=== PATIENT | male | born 1965 | race Caucasian/White ===

== ENCOUNTER 2024-07-17 14:09 | Outpatient (AMB) | payer OTHER, SELFPAY ==
--- NOTE | 2024-07-17 11:27 | MHC.OFFVIS ---
Vital Signs 07/17/24 14:14 Height 5 ft 11 in Weight 194 lb 6 oz BMI 27.1 BP 132/74 Blood Pressure Location Lt brachial Position Sitting Pulse 94 Pulse Source Pulse Oximeter Pulse Oximetry (%) 93 Oxygen Delivery Method Room Air Intake Visit Reasons: asthma, SOB and persistent cough Allergies No Known Allergies Allergy (Verified 07/17/24 14:20) HPI HPI asthma, SOB and persistent cough: Details: Pepe is a pleasant 58 year old male, never smoker, with underlying asthma, ARSALAN not on CPAP, HTN, HLD and Depression. He was referred by PCP for pulmonary evaluation. He reports worsening respiratory control over the last few years with wheezing, dyspnea, chest tightness and dry cough. He has been using albuterol MDI quite frequently with suboptimal relief. Previously he was prescribed Flovent many years ago. PCP recently prescribed a zpak, however minimal relief. CXR unremarkable. He reports asthma dx as an adult. He reports seasonal allergies, would like to defer allergy testing at this time. Has three dogs at home. He denies any occupational exposures. He denies any pertinent family history. [facility] Social History (Updated 07/17/24 @ 14:22 by Ana Chapa [facility]) Patient Tobacco Use Status: Never used Tobacco Substance Use Type: Marijuana Review of Systems Const Denies chills, Denies excessive sweating, Denies fever(s), Denies headache(s) and Denies night sweats Eyes Denies dry eyes, Denies irritation and Denies itchy eyes ENT Reports Normal hearing present, Denies headache(s), Denies nasal congestion, Denies nasal discharge and Denies sore throat Card Denies chest pain, Denies chest pain at rest, Denies chest pain with activity, Denies claudication, Denies leg edema, Denies orthopnea and Denies paroxysmal nocturnal dyspnea Resp Denies chest congestion, Denies excessive phlegm production, Denies pain on inspiration, Denies pain with cough and Denies stridor Musc Denies myalgias Neuro Reports Normal hearing present and Denies headache(s) Endo Denies excessive sweating Benny/Lymph Denies lymphadenopathy Aller/Immun Denies itchy eyes and Denies seasonal rhinorrhea Physical Exam Vital Signs: Last Vital Signs Pulse 94 07/17/24 14:14 BP 132/74 07/17/24 14:14 Pulse Ox 93 07/17/24 14:14 Oxygen Delivery Method Room Air 07/17/24 14:14 BMI result Body Mass Index 27.1 Const General: cooperative, healthy appearing, comfortable, no acute distress, well developed and alert Orientation/consciousness: patient oriented x3 Limitations: no limitations HEENT Head: Yes normal to inspection, Yes normocephalic and Yes atraumatic Ears: hearing grossly normal bilaterally and external ears normal Eyes General: appearance normal, both eyes and all related structures Eyelids: Yes eyelids normal Sclerae: sclerae normal EOM: EOMs intact bilaterally Neck Neck: Yes normal visual inspection and Yes no lymphadenopathy Lymphatic: no lymphadenopathy noted Chest Chest palpation & inspection: normal inspection of the chest Resp Effort & Inspection: normal respiratory effort, able to speak in complete sentences, audible wheezes, Actively coughing Quality: dry, no stridor, not tachypneic, no tripod positioning and no use of accessory muscles Auscultation: wheezes (bilateral upper expiratory wheezes, resolved with DuoNeb) Cardio Jugular venous distension: no JVD Rate: regular rate Rhythm: regular rhythm Skin Other: warm, dry General skin exam: no rashes or lesions noted Neuro General: patient oriented x3 Cranial nerves: Yes Normal hearing present Cognition (Neuro): normal cognition Gait exam (Neuro): Normal gait present Extrem General: Yes normal to inspection, Yes capillary refill normal, Yes no clubbing, cyanosis or edema and Yes no pedal edema Psych Appearance: grossly normal and well kempt Speech and movement: Normal speech and movement present and Clear speech present Affect: normal affect Attitude: cooperative Thought process: Normal thought process present Thought content: Normal thought content present Insight: Good insight present (Psych) Judgement: Good judgement present (Psych) Office Procedures Nebulizer Treatment Nebulizer Treatment [id number]/MDI RX initial, or Nebulizer Subsequent Treatment Office Meds ipratropium 0.5 mg-albuterol 3 mg (2.5 mg base)/3 mL nebulization felix Performing Provider: Purnima Presley NP Performing Location: [facility] [place] [facility] Administered by: Carmel Rivera LPN on 07/17/24 15:03 Dose Route Admin Location Dispensed Lot Number Expiration Date [facility] [employer] 3 mL inhalation 3 mL [id number] 03/28/26 83960-378-38 [employer] Results Reviewed Results Reviewed: RESULT: Chest 2 Views Frontal and Lat Chest 2 Views Frontal and Lat REASON: COUGH COMPARISON: 04/21/2012 FINDINGS: LINES AND TUBES: None. LUNGS AND PLEURA: Clear lungs. Normal pulmonary vascularity. No pleural effusion. No pneumothorax. HEART, MEDIASTINUM AND RAMONA: Heart is normal in size. Normal mediastinal and hilar contour. BONES AND SOFT TISSUES: No acute abnormality. IMPRESSION: No acute abnormality. I have personally reviewed the images and I agree with this report. WSN: [id number] Ordering Physician: Bismark Weiss Reason For Exam cough Signature Line Dictated By: Lucia Dickson DO Dictated Date/Time: 07/09/24 9:23 am Reviewed By: John Lundy MD, V Signed By: John Lundy MD, V Signed Date/Time: 07/09/24 9:28 am Transcribed By: KYLE Assessment & Plan Assessment & Plan (1) Asthma: Code(s): J45.909 - Unspecified asthma, uncomplicated Category: Medical (2) Environmental allergies: Code(s): Z91.09 - Other allergy status, other than to drugs and biological substances Category: Medical Plan Pepe's symptoms are likely related to poorly controlled asthma, using albuterol MDI frequently. Singificantly improved after DuoNeb in office. Will empirically switch to Breo. Discussed importance of good oral hygiene to prevent thrush. Will also send for PFT. Discussed sending for allergy testing, however would like to defer at this time. He did note h/o ARSALAN, prior sleep study many years ago. Will further discussing at next visit if asthma better controlled. All questions were answered and patient is in agreement of plan. Will follow up in 6-8 weeks or sooner if needed. Orders: Orders AMB Nebulizer Treatment Today J45.909 - Unspecified asthma, uncomplicated PFT pulmonary function test Today J45.909 - Unspecified asthma, uncomplicated Medications: New fluticasone furoate-vilanterol 100-25 mcg/dose (Breo Ellipta) 1 inh inhalation DAILY 60 ea 6RF Coding Level of Care Code New Pt Level 4 (15682) Diagnoses Asthma J45.909 Environmental allergies Z91.09 CPT Codes Nebulizer Treatment - Nebulizer Treatment, initial or subsequent: [id number]/MDI RX initial, or Nebulizer Subsequent Treatment ([id number])
[2024-07-17 14:14] VITALS: BP 132/74; PULSE 94; O2SAT 93; BMI 27.1
== END 2024-07-17 15:29 | disposition home or self-care (01) ==
PROVIDERS: PCP Physician Assistant Medical; Referring Provider Physician Assistant Medical; Visit Provider Nurse Practitioner Family
DX: J45.909 Unspecified asthma, uncomplicated (principal); Z91.09 Other allergy status, other than to drugs and biological substances
CPT/HCPCS: 99204

== ENCOUNTER 2024-09-03 13:47 | Outpatient (REF) | payer OTHER, SELFPAY ==
--- OUTSIDE RECORDS SUMMARY | 2024-09-03 13:50 | XMS_ITS | Encounter Summary ---
Author Organization [facility] Address [address] [place] [address] Care Team Providers Care Stone Carver Name Role Phone Isela, Bismark BARRIOS Primary Care Provider [phone] Encounter Details Date Type Department Care Team (Late st Contact Info) Description 08/25/2024 10:12 AM EST Anesthesia Event [facility] [address] [facility] [place] [id number] Pepe SheriffDO [address] [place] [address] Anesthesia Record Procedure Summary Procedure Name Responsible Anesthesiologist Anesthesia Start Time Anesthesia Stop Time COLONOSCOPY Pepe SheriffDO 08/25/24 1012 08/25/24 1035 Events Date Time Event Comment 08/25/2024 0948 1012 An Start 1012 In Room 1012 An Start Data The patient wa s reevaluated immediately before moderate or deep sedation use and before anesthesia induction. 1015 Anesthesia Ready 1029 Out of Room 1029 an stop data 1034 Handoff to RN I completed my handoff to the receiving nurse during which we: 1. Identified the patient 2. Identified the responsible provider 3. Reviewed the pertinent medical history 4. Discussed the surgical course 5. Reviewed intra-op anesthesia management and issues during anesthesia 6. Set expectations for post-procedure period 7. Allowed opportunity for questions and acknowledgement of understanding. 1035 An Stop Meds Name Total propofol (DIPRIVAN) injection 10 mg/mL 3 50 mg lidocaine PF (XYLOCAINE-MPF) local injec tion 2% 50 mg lactated Ringer's infusion 400 mL * Agents No agents on file. * Blood No blood administrations on file. Lines, Drains, and Airways Type Details Placement Removal Peripheral IV Placement Date: 08/25/24; Placement Time: 936; Catheter Size: 20 G; Orientation: Posterior, Right; Location: Hand; Insertion Attempts: 1; Patient Tolerance: Tolerated well; Removal Date: 08/25/24; Removal Time: 1043 08/25/24 0937 by Shayy Jj RN 08/25/24 1043 by Cathy Parsons RN documented in this encounter Social History Tobacco Use Types Packs/Day Years Used Date Smoking Tobacco: Never Smokeless Tobacco: Never Alcohol Use Standard Drinks/Week Comments Yes 9 (1 standard drink = 0.6 oz pur e alcohol) Interpersonal Safety Answer Date Record ed Physical Abuse 08/25/2024 Verbal Abuse 08/25/2024 Sex and Gender Information Value Date Recorded Sex Assigned at Male 08/13/2024 8:48 AM EST Gender Identity Male 08/13/2024 8:48 AM EST Sexual Orientation Straight 08/13/2024 8: 48 AM EST Job Start Date Occupation Industry Not on file Not on file Not on file documented as of this encounter Progress Notes * Phuong Mcmillan CRNA - 08/25/2024 10:34 AM EST Patient: Pepe Yao Procedure Summary Date: 08/25/24 Room / Location: [facility] Anesthesia Start: 101 Anesthesia Stop: Procedure: COLONOSCOPY Diagnosis: Family history of colonic polyps (Screening in patient with FH polyp 1st deg relative age < 60 yrs) Scheduled Providers: Humble Kessler MD; Phuong Mcmillan CRNA; Pepe Sheriff DO Responsible Provider: Pepe Sheriff DO Anesthesia Type: MAC ASA Status: 2 Anesthesia Plan: MAC Last Vitals: Vitals Value Taken Time BP 114/73 08/25/24 1034 Pulse 68 08/25/24 1034 Resp 16 08/25/24 1034 SpO2 97 08/25/24 1034 No data recorded Anesthesia Post Evaluation Patient location during evaluation: PACU Patient participation: complete - patient participated Level of consciousness: awake Pain management: adequate Airway patency: patent Anesthetic complications: no Cardiovascular status: acceptable Respiratory status: acceptable Hydration status: acceptable Nausea: No Vomiting: No No notable events documented. * Pepe Sheriff DO - 08/25/2024 9:33 AM EST Relevant Problems No relevant active problems Clinical information reviewed: Allergies Anesthesia Plan ASA 2 Anesthesia Plan: MAC Anesthesia Risks Discussed allergic reaction, dental injury, nausea, serious complications, pain, sore throat and corneal abrasion Plan Factors Patient is not a current smoker Induction method: N/A Anesthetic plan and risks discussed with patient. Anesthesia Plan discussed with attending. Anesthesia Evaluation Patient summary reviewed and Nursing notes reviewed No history of anesthetic complications Airway Mallampati: IV Comment: Small mouth opening Dental - normal exam Pulmonary - normal exam breath sounds clear to auscultation (+) asthma (-) pneumonia, shortness of breath Cardiovascular - normal exam Exercise tolerance: good (+) hypertension (-) past ID, CAD, SANTOS Rhythm: regular Rate: normal ROS comment: HLD Neuro/Psych (-) seizures, TIA, CVA GI/Hepatic/Renal (-) GERD, liver disease, renal disease Endo/Other (-) diabetes mellitus, hypothyroidism Comments: Anxiety/depression - very anxious about being in hospital sweating Abdominal (-) obese PONV RISK SCORE: 0 There were no vitals filed for this visit. SpO2 Readings from Last 1 Encounters: No data found for SpO2 No results found for: WBC , RBC , HGB , HCT , PLT , MCV No Known Allergies STOP BANG: No data recorded NPO Status: Time of Last Liquid: 2200 Time of Last Solid: 1600 documented in this encounter Plan of Treatment Not on file documented as of this encounter Visit Diagnoses Not on filedocumented in this encounter Administered Medications Inactive Administered Medications - up to 3 most recent administrations Medication Order MAR Action Action Date Dose Rate Site lactated Ringer's infusion intravenous, Continuous PRN, Starting on Sat08/25/24 at 1012, Anesthesia Intraprocedure New Bag 08/25/2024 10:12 AM EST 75 mL/hr lidocaine (PF) (XYLOCAINE-MPF) 2 % injection injection, As needed, Starting on Sat08/25/24 at 1014, Anesthesia Intraprocedure Given 08/25/2024 10:14 AM EST 50 mg propofoL (DIPRIVAN) injection intravenous, As needed, Starting on Sat08/25/24 at 1014, Anesthesia Intraprocedure Given 08/25/2024 10:27 AM EST 50 mg Given 08/25/2024 10:23 AM EST 50 mg Given 08/25/2024 10:19 AM EST 50 mg documented in this encounter Care Teams Stone Carver Relationship Specialty Start Date End Date Bismark Weiss PA [address] [place] [phone] PCP - General Physician Manager Residential 07/14/24 documented as of this encounter
--- OUTSIDE RECORDS SUMMARY | 2024-09-03 13:50 | XMS_ITS | Encounter Summary ---
Author Organization [facility] Address [address] [place] [phone] Care Team Providers Care Candy Packer Name Role Phone Isela Bismark BARRIOS Primary Care Provider [phone] Reason for Referral * Hospital - Outpatient (Routine) - Closed Specialty Diagnoses / Procedures Referred By Melly angeles Referred To Contact Gastroenterology Diagnoses Family history of colonic polyps Procedures COLONOSCOPY Anesthesia - MAC; [facility] ENDOSCOPY Humble Kessler MD [address] [address] [facility] Endoscopy [address] [place] [address] Referral ID Status Reason Start Date Expiration Date Visits Re quested Visits Authorized [id number] Closed 07/27/2024 07/27/2025 1 1 Reason for Visit * Hospital - Outpatient (Routine) - Closed Specialty Diagnoses / Procedures Referred By Melly angeles Referred To Contact Gastroenterology Diagnoses Family history of colonic polyps Procedures COLONOSCOPY Anesthesia - MAC; [facility] ENDOSCOPY Humble Kessler MD [address] [address] [facility] Endoscopy [address] [place] [address] Referral ID Status Reason Start Date Expiration Date Visits Re quested Visits Authorized [id number] Closed 07/27/2024 07/27/2025 1 1 Encounter Details Date Type Department Care Team (Latest Contact Info) Description 08/25/2024 9:04 AM EST - 08/25/2024 11:59 PM EST Hospital Encounter [facility] Endoscopy [address] [place] [phone] Humble Kessler MD 229 [facility] [address] [place] [address] Matt Angeles MD [address] [place] [address] Family history of colonic polyps Discharge Disposition: Home or Self Care Social History Tobacco Use Types Packs/Day Years Used Date Smoking Tobacco: Never Smokeless Tobacco: Never Tobacco Cessation:Counseling Given: Not Answered Alcohol Use Standard Drinks/Week Comments Yes 9 [...] on file documented as of this encounter Last Filed Vital Signs Vital Sign Reading Time Taken Comments Blood Pressure 145/89 08/25/2024 10:50 AM EST Pulse 63 08/25/2024 10:50 AM EST Temperature 36.7 ??C (98 ??F) 08/25/2024 10:30 AM EST Respiratory Rate 11 08/25/2024 10:50 AM EST Oxygen Saturation 98% 08/25/2024 10:50 AM EST Inhaled Oxygen Concentration - - Weight 86.2 kg (190 lb) 08/25/2024 9:36 AM EST Height 180.3 cm (5' 11 ) 08/25/2024 9:36 AM EST Body Mass Index 26.5 08/25/2024 9:36 AM EST documented in this encounter Discharge Instructions * Attachments The following attachments cannot be sent through Care Everywhere. * Colonoscopy: Post-op (Ghanaian) * Diverticulosis (Ghanaian) documented in this encounter Medications at Time of Discharge Medication Sig Dispensed Refills Start Date End Date amLODIPine (NORVASC) 10 mg tablet Take 1 tablet (10 mg total) by mouth 1 (one) time each day. 07/08/2024 atorvastatin (LIPITOR) 10 mg tablet Take 1 tablet (10 mg total) by mouth 1 (one) time each day. 07/08/2024 Auvelity 45-105 mg tablet, IR and ER, biphasic Take 1 tablet by mouth 2 (two) times a day. 08/13/2024 Breo Ellipta 100-25 mcg/dose inhaler Inhale 1 puff by mouth 1 (one) time each day. 07/17/2024 coenzyme Q-10 30 mg capsule Take 2 capsules (60 mg total) by mouth 1 (one) time each day. fluticasone propionate (FLONASE) 50 mcg/actuation nasal spray Administer 2 sprays into each nostril 1 (one) time each day. 07/08/2024 hydrOXYzine HCL (ATARAX) 25 mg tablet Take 1 tablet (25 mg total) by mouth 3 (three) times a day if needed. 07/27/2024 magnesium, amino acid chelate, 133 mg tablet Take 1 tablet (133 mg total) by mouth 2 (two) times a day. documented as of this encounter Discharge Disposition Disposition Code Departure Means Destination Home or Self Care documented in this encounter Progress Notes * Cathy Parsons RN - 08/25/2024 10:45 AM EST Problem: Cognitive:Periop Procedure - Minor Goal: Knowledge of disease or condition will improve Outcome: Adequate for Discharge Problem: Sensory:Periop Procedure - Minor Goal: Demonstrates/reports adequate pain control Outcome: Adequate for Discharge * Sun Fortune RN - 08/25/2024 10:45 AM EST Problem: Cognitive:Periop Procedure - Minor Goal: Knowledge of disease or condition will improve Outcome: Adequate for Discharge Problem: Sensory:Periop Procedure - Minor Goal: Demonstrates/reports adequate pain control Outcome: Adequate for Discharge * Valencia Herring RN - 08/25/2024 10:13 AM EST Scope number - [id number] * Shayy Jj RN - 08/25/2024 9:29 AM EST Problem: Cognitive:Periop Procedure - Minor Goal: Knowledge of disease or condition will improve Outcome: Progressing Problem: Sensory:Periop Procedure - Minor Goal: Demonstrates/reports adequate pain control Outcome: Progressing PT VERBALIZED UNDERSTAND OF DC INSTRUCTIONS, FALL RISK REVIEWED, CALL [facility] AT BEDSIDE. documented in this encounter H&P Notes * Humble Kessler MD - 08/25/2024 10:00 AM EST Pre-Op Diagnosis: FH polyp Proposed Procedure: colon Performing Surgeon/MD/Endoscopist: Humble Kessler MD Medical/History: Past Medical History: Diagnosis Date Anxiety Asthma Depression Hyperlipidemia Hypertension Past Surgical History: Procedure Laterality Date HERNIA REPAIR MENISCECTOMY Left MOUTH SURGERY Medications/Allergies: Prior to Admission medications Medication Sig Start Date End Date Taking? Authorizing Provider amLODIPine (NORVASC) 10 mg tablet Take 1 tablet (10 mg total) by mouth 1 (one) time each day. 07/08/24 Yes Historical Provider, atorvastatin (LIPITOR) 10 mg tablet Take 1 tablet (10 mg total) by mouth 1 (one) time each day. 07/08/24 Yes Historical Provider, Auvelity 45-105 mg tablet, IR and ER, biphasic Take 1 tablet by mouth 2 (two) times a day. 08/13/24 Yes Historical Provider, Breo Ellipta 100-25 mcg/dose inhaler Inhale 1 puff by mouth 1 (one) time each day. 07/17/24 Yes Historical Provider, coenzyme Q-10 30 mg capsule Take 2 capsules (60 mg total) by mouth 1 (one) time each day. Yes Historical Provider, fluticasone propionate (FLONASE) 50 mcg/actuation nasal spray Administer 2 sprays into each nostril1 (one) time each day. 07/08/24 Yes Historical Provider, hydrOXYzine HCL (ATARAX) 25 mg tablet Take 1 tablet (25 mg total) by mouth 3 (three) times a day ifneeded. 07/27/24 Yes Historical Provider, magnesium, amino acid chelate, 133 mg tablet Take 1 tablet (133 mg total) by mouth 2 (two) times a day. Yes Historical Provider, Patient Age:58 y.o. Vitals: Vitals: 08/25/24 0936 BP: (!) 154/89 Pulse: 92 Resp: 14 Temp: 36.7 ??C (98 ??F) SpO2: 97% Physical Exam: Mental Status: Clear HEENT: WNL Heart: WNL Lungs: WNL Abdomen: WNL Extremities: WNL Neuro: WNL Labs: Imaging: Diagnosis/Plan: Colonoscopy documented in this encounter Procedure Notes * Sun Fortune RN - 08/25/2024 10:30 AM EST FINDINGS AND DISCHARGE INSTRUCTIONS REVIEWED WITH PT. PT VERBALIZES UNDERSTANDING. PT JEANNE PO PRIOR TO D/C. PT D/C'D WITH BELONGINGS. documented in this encounter Plan of Treatment Not on file documented as of this encounter Procedures Procedure Name Priority Date/Time Associated Diagnosis Comments COLONOSCOPY Routine 08/25/2024 10:29 AM EST Family history of colonic polyps documented in this encounter Results * COLONOSCOPY Anesthesia - MAC; [facility] ENDOSCOPY (08/25/2024 10:29 AM EST) Anatomical Region Laterality Modality Endoscopy 08/25/2024 10:0 9 AM EST Impressions 08/25/2024 10:31 AM EST - Diverticulosis in the sigmoid colon. ? - The examination was otherwise normal on direct and ? retroflexion views. ? - No specimens collected. Recommendation: ?- Repeat colonoscopy in 5 years for screening purposes. Narrative 08/25/2024 10:31 AM EST [facility] GI Patient Name: Pepe Yao Procedure Date: 08/25/2024 10:09 AM Date of : 1965 Age: 58 Room: ROOM 15 Gender: Male Note Status: Finalized Attending MD: Humble Kessler MD, Procedure Date No Time: 08/25/2024 Procedure: ? Colonoscopy Indications: ? Colon cancer screening in patient at increased risk: ? Family history of 1st-degree relative with colon ? polyps before age 60 years Providers: ? Hubmle Kessler MD Referring MD: ?Humble Kessler MD Medicines: ? Propofol per Anesthesia Complications: ? No immediate complications. Estimated Blood Loss: ? Estimated blood loss: none. Procedure: ? Pre-Anesthesia Assessment: ? - ASA Grade Assessment: II - A patient with mild ? systemic disease. ? After I obtained informed consent, the scope was ? passed under direct vision. Throughout the procedure, ? the patient's blood pressure, pulse, and oxygen ? saturations were monitored continuously.The ? Colonoscope was introduced through the anus and ? advanced to the cecum, identified by appendiceal ? orifice and ileocecal valve. The colonoscopy was ? performed without difficulty. The patient tolerated ? the procedure well. The quality of the bowel ? preparation was good. Findings: ?The perianal and digital rectal examinations were ? normal. ? Multiple diverticula were found in the sigmoid colon. ? The exam was otherwise without abnormality on direct ? and retroflexion views. Procedure Code(s): ? --- Professional --- ? G0105, Colorectal cancer screening; colonoscopy on ? individual at high risk Diagnosis Code(s): ? --- Professional --- ? K57.30, Diverticulosis of large intestine without ? perforation or abscess without bleeding ? Z83.71, Family history of colonic polyps CPT copyright 2020 [employer]. All rights reserved. The codes documented in this report are preliminary and upon golf course patroller review may be revised to meet current compliance requirements. Humble Kessler MD 08/25/2024 10:31:43 AM This report has been signed electronically.Humble Kessler MD Number of Addenda: 0 Note Initiated On: 08/25/2024 10:09 AM Scope In: Scope Out: ? Endoscopy Department at [facility] - [address] [place] [address], ? [place] [address] Procedure Note Humble Kessler MD - 08/25/2024 [facility] GI Patient Name: Pepe Yao Procedure Date: 08/25/2024 10:09 AM Date of : 1965 Age: 58 Room: ROOM 15 Gender: Male Note Status: Finalized Attending MD: Humble Kessler MD, Procedure Date No Time: 08/25/2024 Procedure: Colonoscopy Indications: [facility] Family history of 1st-degree relative with colon polyps before age 60 years Providers: Humble Kessler MD Referring MD: Humble Kessler MD Medicines: Propofol per Anesthesia Complications: No immediate complications. Estimated Blood Loss: Estimated blood loss: none. Procedure: Pre-Anesthesia Assessment: - ASA Grade Assessment: II - A patient with mild systemic disease. After I obtained informed consent, the scope was passed under direct vision. Throughout theprocedure, the patient's blood pressure, pulse, and oxygen saturations were monitored continuously.The Colonoscope was introduced through the anus and advanced to the cecum, identified by appendiceal orifice and ileocecal valve. The colonoscopy was performed without difficulty. The patient tolerated the procedure well. The quality of the bowel preparation was good. Findings: The perianal and digital rectal examinations were normal. Multiple diverticula were found in the sigmoidcolon. The exam was otherwise without abnormality ondirect and retroflexion views. Procedure Code(s): --- Professional --- G0105, Colorectal cancer screening; colonoscopy on individual at high risk Diagnosis Code(s): --- Professional --- K57.30, Diverticulosis of large intestine without perforation or abscess without bleeding Z83.71, Family history of colonic polyps CPT copyright 2020 [employer]. All rights reserved. The codes documented in this report are preliminary and upon golf course patroller reviewmay be revised to meet current compliance requirements. Humble Kessler MD 08/25/2024 10:31:43 AM This report has been signed electronically.Humble Kessler MD Number of Addenda: 0 Note Initiated On: 08/25/2024 10:09 AM Scope In: Scope Out: Endoscopy Department at [facility] - [address] [place] [phone] IMPRESSION: - Diverticulosis in the sigmoid colon. - The examination was otherwise normal on directand retroflexion views. - No specimens collected. Recommendation: - Repeat colonoscopy in 5 years for screeningpurposes. Humble Kessler MD GI~PROCEDURE ORDERA BLES documented in this encounter Visit Diagnoses Diagnosis Family history of colonic polyps documented in this encounter Historical Medications * This list may reflect changes made after this encounter. Medication Sig Dispensed Refills Start Date End Date magnesium, amino acid chelate, 133 mg tablet Take 1 tablet (133 mg total) by mouth 2 (two) times a day. coenzyme Q-10 30 mg capsule Take 2 capsules (60 mg total) by mouth 1 (one) time each day. fluticasone propionate (FLONASE) 50 mcg/actuation nasal spray Administer 2 sprays into each nostril 1 (one) time each day. 07/08/2024 Breo Ellipta 100-25 mcg/dose inhaler Inhale 1 puff by mouth 1 (one) time each day. 07/17/2024 hydrOXYzine HCL (ATARAX) 25 mg tablet Take 1 tablet (25 mg total) by mouth 3 (three) times a day if needed. 07/27/2024 Auvelity 45-105 mg tablet, IR and ER, biphasic Take 1 tablet by mouth 2 (two) times a day. 08/13/2024 atorvastatin (LIPITOR) 10 mg tablet Take 1 tablet (10 mg total) by mouth 1 (one) time each day. 07/08/2024 amLODIPine (NORVASC) 10 mg tablet Take 1 tablet (10 mg total) by mouth 1 (one) time each day. 07/08/2024 added in this encounter Orders Discharge Count Last Ordered Date First Orde red Date DISCHARGE PATIENT 1 08/25/2024 documented in this encounter Care Teams Candy Packer Relationship Specialty Start Date End Date Bismark Weiss PA [address] [place] [phone] PCP - General Physician Decker Operator 07/14/24 documented as of this encounter
--- OUTSIDE RECORDS SUMMARY | 2024-09-03 13:51 | XMS_ITS | Clinical Summary ---
Author Organization [facility] [address] [facility] Address [address] [place] [address] Phone Care Team Providers Care Certified Dialysis Technician Name Role Phone Bismark Weiss Primary Care Provider [phone] Allergies No known active allergies Medications Medication Sig Dispensed Refills Start Date End Date Status amLODIPine (NORVASC) 10 mg tablet Take 1 tablet (10 mg total) by mouth 1 (one) time each day. 07/08/2024 Active atorvastatin (LIPITOR) 10 mg tablet Take 1 tablet (10 mg total) by mouth 1 (one) time each day. 07/08/2024 Active Auvelity 45-105 mg tablet, IR and ER, biphasic Take 1 tablet by mouth 2 (two) times a day. 08/13/2024 Active hydrOXYzine HCL (ATARAX) 25 mg tablet Take 1 tablet (25 mg total) by mouth 3 (three) times a day if needed. 07/27/2024 Active Breo Ellipta 100-25 mcg/dose inhaler Inhale 1 puff by mouth 1 (one) time each day. 07/17/2024 Active fluticasone propionate (FLONASE) 50 mcg/actuation nasal spray Administer 2 sprays into each nostril 1 (one) time each day. 07/08/2024 Active coenzyme Q-10 30 mg capsule Take 2 capsules (60 mg total) by mouth 1 (one) time each day. Active magnesium, amino acid chelate, 133 mg tablet Take 1 tablet (133 mg total) by mouth 2 (two) times a day. Active Encounters Date Type Department Care Team Description 08/25/2024 10:12 AM EST Anesthesia Event [facility] Endoscopy [address] [place] [address] Pepe Sheriff DO 08/25/2024 9:04 AM EST - 08/25/2024 11:59 PM EST Hospital Encounter [facility] Endoscopy [address] [place] [address] Humble Kessler MD Spencer, Mark A, MD Family history of colonic polyps Discharge Disposition: Home or Self Care 07/30/2024 Telephone Gastroenterology - [address] [address] SatnamMehrdadfadi [place] 07/14/2024 Telephone Gastroenterology - 299 [facility] [address] [phone] Humble Kessler MD from Last 3 Months Surgical History Surgery Date Site/Laterality Comments MOUTH SURGERY MENISCECTOMY Left HERNIA REPAIR Medical History Medical History Date Comments Hypertension Hyperlipidemia Asthma Anxiety Depression Social History Tobacco Use Types Packs/Day Years [...] file Not on file Not on file Obstetrics History Last Filed Vital Signs Vital Sign Reading [...] Mass Index 26.5 08/25/2024 9:36 AM EST Plan of Treatment Health Maintenance Due Date Last Done Comments DTaP,Tdap,and Td Vaccines (1 - Tdap) 1984 Hepatitis B Vaccines (1 of 3 - 19+ 3-dose series) 1984 Zoster Vaccines (1 of 2) 10/03/2015 COVID-19 Vaccine (2023-2 5 season) 2024 08/01/2021, 11/23/2020, 11/02/2020 Cholesterol Screening (Lipid Panel) 07/14/2024 Depression Screening 07/14/2024 HIV Screening 07/14/2024 Hepatitis C Screening 07/14/2024 Social Influencers of Health Screening 07/14/2024 Colorectal Cancer Screening: Colonoscopy 08/25/2034 08/25/2024 Influenza Vaccine Completed 07/16/2024 HIB Vaccines Aged Out No longer eligi ble based on patient's age to complete this topic HPV Vaccines Aged Out No longer eligi ble based on patient's age to complete this topic Hepatitis A Vaccines Aged Out No long er eligible based on patient's age to complete this topic IPV Vaccines Aged Out No longer eligi ble based on patient's age to complete this topic MMR Vaccines Aged Out No longer eligi ble based on patient's age to complete this topic Meningococcal ACWY Vaccine Aged Out N o longer eligible based on patient's age to complete this topic Pneumococcal Vaccine: Pediatrics (0 to 5 Years) and At-Risk Patients (6 to 64 Years) Aged Out No longer eligible b ased on patient's age to complete this topic RSV Immunization Patients Under 20 months Aged Out No longer eligible b ased on patient's age to complete this topic Varicella Vaccines Aged Out No longer eligible based on patient's age to complete this topic Procedures Procedure Name Priority Date/Time Associated Diagnosis Comments COLONOSCOPY Routine 08/25/2024 10:29 AM EST Family history of colonic polyps from Last 3 Months Results * COLONOSCOPY Anesthesia - MAC; [facility] ENDOSCOPY (08/25/2024 10:29 AM EST) Anatomical Region Laterality Modality Endoscopy 08/25/2024 10:0 9 AM EST Impressions 08/25/2024 10:31 AM EST - Diverticulosis in the sigmoid colon. ? - The examination was otherwise normal on direct and ? retroflexion views. ? - No specimens collected. Recommendation: ?- Repeat colonoscopy in 5 years for screening purposes. Narrative 08/25/2024 10:31 AM EST [facility] GI Patient Name: Pepe Yao Procedure [...] polyps before age 60 years Providers: ? Humble Kessler MD Referring MD: ?Humble Kessler MD [...] history of colonic polyps CPT copyright 2020 [employer]. All rights reserved. The codes documented in this report are preliminary and upon pulp mill team leader review may be revised to meet current compliance requirements. Humble Kessler MD 08/25/2024 10:31:43 AM This report has been signed electronically.Humble Kessler MD Number of Addenda: 0 Note Initiated On: 08/25/2024 10:09 AM Scope In: Scope Out: ? Endoscopy Department at [facility] - [address] [place] [address], ? [place] [address] Procedure Note Humble Kessler MD - 08/25/2024 [facility] GI Patient Name: Pepe Yao Procedure Date: 08/25/2024 10:09 AM Date of : 1965 Age: 58 Room: ROOM 15 Gender: Male Note Status: Finalized Attending MD: Humble Kessler MD, Procedure Date No Time: 08/25/2024 Procedure: Colonoscopy Indications: [facility] history of 1st-degree relative with colon [...] history of colonic polyps CPT copyright 2020 [employer]. All rights reserved. The codes documented in this report are preliminary and upon pulp mill team leader reviewmay be revised to meet current compliance requirements. Humble Kessler MD 08/25/2024 10:31:43 AM This report has been signed electronically.Humble Kessler MD Number of Addenda: 0 Note Initiated On: 08/25/2024 10:09 AM Scope In: Scope Out: Endoscopy Department at [facility] - [address] [place] [phone] IMPRESSION: - Diverticulosis in the sigmoid colon. - The examination was otherwise normal on directand retroflexion views. - No specimens collected. Recommendation: - Repeat colonoscopy in 5 years for screeningpurposes. Humble Kessler MD GI~PROCEDURE ORDERA BLES from Last 3 Months Care Teams Certified Dialysis Technician Relationship Specialty Start Date End Date Bismark Weiss PA [address] [place] [phone] PCP - General Physician Fender Mechanic 07/14/24
--- NOTE | 2024-09-03 14:10 | PFT_ITS ---
Flows: FEV1: 102 % of predicted at 3.82 L FVC: 108 % of predicted at 5.26 L FEV1/FVC: 73 % Bronchodilator response: Present Volumes: Total lung capacity: 97 % of predicted at 7.20 L Residual volume: 91 % of predicted at 2.04 L Slow vital capacity: 97 % of predicted at 5.15 L Expiratory reserve volume: 187 % of predicted at 2.65 L Diffusion capacity: Normal Impression: No obstructive or restrictive ventilatory defect. Positive bronchodilator response. MTDD
== END 2024-09-03 13:48 | disposition home or self-care (01) ==
LOC: HO.RESP 13:47
PROVIDERS: PCP Physician Assistant Medical; Visit Provider Nurse Practitioner Family
DX: J45.909 Unspecified asthma, uncomplicated (principal)
CPT/HCPCS: 94010; 94727; 94729

== ENCOUNTER → 2024-09-03 14:10 | Outpatient (BNV) | payer OTHER, SELFPAY | PROVIDERS: PCP Physician Assistant Medical; Visit Provider Internal Medicine Pulmonary Disease | DX: J45.909 Unspecified asthma, uncomplicated (principal) | CPT/HCPCS: 94060; 94727; 94729 ==

== ENCOUNTER 2024-09-04 15:51 | Outpatient (AMB) | payer OTHER, SELFPAY ==
--- NOTE | 2024-09-04 15:53 | MHC.OFFVIS ---
Vital Signs 09/04/24 15:55 Height 5 ft 11 in Weight 186 lb BMI 25.9 BP 130/70 Blood Pressure Location Rt brachial Position Sitting Pulse 91 Pulse Source Pulse Oximeter Pulse Oximetry (%) 99 Oxygen Delivery Method Room Air Intake Visit Reasons: asthma, SOB and persistent cough Obstetrics Specialist Required: No Cycle Consultant: Cycle Consultant offered & declined Accompanied by: Self / Same As Patient Allergies No Known Allergies Allergy (Verified 09/04/24 15:58) Medication List - Last Reconciled 09/04/24 by Carmel Rivera LPN albuterol sulfate 90 mcg/actuation inhalation amlodipine 10 mg PO DAILY atorvastatin 10 mg PO DAILY fluticasone propion-salmeterol 115-21 mcg/actuation (Advair HFA) 2 puffs inhalation Q12H fluticasone propionate 50 mcg/actuation sprays intranasal hydroxyzine HCl 25 mg PO TID HPI HPI asthma, SOB and persistent cough: Details: Pepe is a pleasant 58 year old male, never smoker, with underlying asthma, ARSALAN not on CPAP, HTN, HLD and Depression. At the last visit, he was started on Breo for reports worsening respiratory control over the last few years with wheezing, dyspnea, chest tightness and dry cough. He reports good control of respiratory symptoms since then, rarely requiring albuterol. Today he presents to review PFT. He denies any visits to urgent care or hospitalizations related to respiratory distress since the last visit. [facility] Social History (Updated 07/17/24 @ 14:22 by Ana Chapa [facility]) Patient Tobacco Use Status: Never used Tobacco Substance Use Type: Marijuana Review of Systems Const Denies chills, Denies excessive sweating, Denies fever(s), Denies headache(s) and Denies night sweats Eyes Denies dry eyes, Denies irritation and Denies itchy eyes ENT Reports Normal hearing present, Denies headache(s), Denies nasal congestion, Denies nasal discharge, Denies post nasal drip and Denies sore throat Card Denies chest pain, Denies chest pain at rest, Denies chest pain with activity, Denies claudication, Denies leg edema, Denies dyspnea, Denies dyspnea on exertion, Denies orthopnea and Denies paroxysmal nocturnal dyspnea Resp Denies chest congestion, Denies cough, Denies excessive phlegm production, Denies pain on inspiration, Denies pain with cough, Denies dyspnea, Denies dyspnea on exertion, Denies stridor and Denies wheezing Musc Denies myalgias Neuro Reports Normal hearing present and Denies headache(s) Endo Denies excessive sweating Benny/Lymph Denies lymphadenopathy Aller/Immun Denies itchy eyes, Denies seasonal rhinorrhea and Denies wheezing Physical Exam Vital Signs: Last Vital Signs Pulse 91 09/04/24 15:55 BP 130/70 09/04/24 15:55 Pulse Ox 99 09/04/24 15:55 Oxygen Delivery Method Room Air 09/04/24 15:55 BMI result Body Mass Index 25.9 Const General: cooperative, healthy appearing, comfortable, no acute distress, well developed and alert Orientation/consciousness: patient oriented x3 Limitations: no limitations HEENT Head: Yes normal to inspection, Yes normocephalic and Yes atraumatic Ears: hearing grossly normal bilaterally and external ears normal Eyes General: appearance normal, both eyes and all related structures Eyelids: Yes eyelids normal Sclerae: sclerae normal EOM: EOMs intact bilaterally Neck Neck: Yes normal visual inspection and Yes no lymphadenopathy Lymphatic: no lymphadenopathy noted Chest Chest palpation & inspection: normal inspection of the chest Resp Effort & Inspection: normal respiratory effort, able to speak in complete sentences, no audible wheezes, no cough, no stridor, not tachypneic, no tripod positioning and no use of accessory muscles Auscultation: clear to auscultation bilaterally Cardio Jugular venous distension: no JVD Rate: regular rate Rhythm: regular rhythm Skin Other: warm, dry General skin exam: no rashes or lesions noted Neuro General: patient oriented x3 Cranial nerves: Yes Normal hearing present Cognition (Neuro): normal cognition Gait exam (Neuro): Normal gait present Extrem General: Yes normal to inspection, Yes capillary refill normal, Yes no clubbing, cyanosis or edema and Yes no pedal edema Psych Appearance: grossly normal and well kempt Speech and movement: Normal speech and movement present and Clear speech present Affect: normal affect Attitude: cooperative Thought process: Normal thought process present Thought content: Normal thought content present Insight: Good insight present (Psych) Judgement: Good judgement present (Psych) Assessment & Plan Assessment & Plan (1) Asthma: Code(s): J45.909 - Unspecified asthma, uncomplicated Category: Medical (2) Environmental allergies: Code(s): Z91.09 - Other allergy status, other than to drugs and biological substances Category: Medical Plan Reviewed PFT which revealed no obstructive or restrictive defect with significant response to bronchodilators, suggestive of asthma. Lung volumes and DLCO normal. At this time, Pepe reports good control of respiratory symptoms on ICS/LABA, advised to continue. Therese unfortunately is not financially feasible, will send Advair. All questions were answered and patient is in agreement of plan. Will follow up in 3-6 months or sooner if needed Medications: Refilled fluticasone propion-salmeterol 115-21 mcg/actuation (Advair HFA) 2 puffs inhalation Q12H 12 grams 3RF Coding Level of Care Code Est Pt Level 4 (86249) Diagnoses Asthma J45.909 Environmental allergies Z91.09
[2024-09-04 15:55] VITALS: BP 130/70; PULSE 91; O2SAT 99; BMI 25.9
== END 2024-09-04 16:29 | disposition home or self-care (01) ==
PROVIDERS: PCP Physician Assistant Medical; Visit Provider Nurse Practitioner Family
DX: J45.909 Unspecified asthma, uncomplicated (principal); Z91.09 Other allergy status, other than to drugs and biological substances
CPT/HCPCS: 99214

== ENCOUNTER → 2024-09-04 15:51 | Outpatient (BNVA) | payer OTHER, SELFPAY | PROVIDERS: PCP Physician Assistant Medical; Visit Provider Nurse Practitioner Family ==

== ENCOUNTER 2025-03-02 15:08 | Outpatient (AMB) | payer OTHER, SELFPAY ==
--- NOTE | 2025-03-02 15:11 | A.OFFVIS_ITS ---
Vital Signs 03/02/25 15:12 Height 5 ft 11 in Weight 180 lb 8 oz BMI 25.2 BP 132/88 Blood Pressure Location Rt brachial Position Sitting Pulse 72 Pulse Source Pulse Oximeter Pulse Oximetry (%) 96 Oxygen Delivery Method Room Air Intake Visit Reasons: asthma, SOB and persistent cough Allergies No Known Allergies Allergy (Verified 03/02/25 15:14) HPI HPI asthma, SOB and persistent cough: Details: Pepe is a pleasant 59 year old male, never smoker, with underlying asthma, ARSALAN not on CPAP, HTN, HLD and Depression. At the last visit, he was started on Breo for reports worsening respiratory control over the last few years with wheezing, dyspnea, chest tightness and dry cough with good effect. Unfortunately, due to insurance coverage patient ultimately switched to Symbicort with good effect. He does note over the last few weeks more noticeable chest tightness and wheezing with associated productive cough with clear sputum which he attributes to allergies, however not using Symbicort consistently. He also has not used albuterol MDI. He denies any visits to urgent care or hospitalizations related to respiratory distress since the last visit. [facility] Social History Patient Tobacco Use Status: Never used Tobacco Substance Use Type: Marijuana Review of Systems Const Denies chills, Denies excessive sweating, Denies fever(s), Denies headache(s) and Denies night sweats Eyes Denies dry eyes, Denies irritation and Denies itchy eyes ENT Reports Normal hearing present, Denies headache(s), Denies nasal congestion, Denies post nasal drip and Denies sore throat Card Denies chest pain, Denies chest pain at rest, Denies chest pain with activity, Denies claudication, Denies leg edema, Denies orthopnea and Denies paroxysmal nocturnal dyspnea Resp Denies chest congestion, Denies excessive phlegm production, Denies pain on inspiration, Denies pain with cough and Denies stridor Musc Denies myalgias Neuro Reports Normal hearing present and Denies headache(s) Endo Denies excessive sweating Benny/Lymph Denies lymphadenopathy Aller/Immun Denies itchy eyes and Denies seasonal rhinorrhea Physical Exam Vital Signs: Last Vital Signs Pulse 72 03/02/25 15:12 BP 132/88 03/02/25 15:12 Pulse Ox 96 03/02/25 15:12 Oxygen Delivery Method Room Air 03/02/25 15:12 BMI result Body Mass Index 25.2 Const General: cooperative, healthy appearing, comfortable, no acute distress, well developed and alert Orientation/consciousness: patient oriented x3 Limitations: no limitations HEENT Head: Yes normal to inspection, Yes normocephalic and Yes atraumatic Ears: hearing grossly normal bilaterally and external ears normal Eyes General: appearance normal, both eyes and all related structures Eyelids: Yes eyelids normal Sclerae: sclerae normal EOM: EOMs intact bilaterally Neck Neck: Yes normal visual inspection and Yes no lymphadenopathy Lymphatic: no lymphadenopathy noted Chest Chest palpation & inspection: normal inspection of the chest Resp Effort & Inspection: normal respiratory effort, able to speak in complete sentences, no audible wheezes, no cough, no stridor, not tachypneic, no tripod positioning and no use of accessory muscles Auscultation: clear to auscultation bilaterally Cardio Jugular venous distension: no JVD Rate: regular rate Rhythm: regular rhythm Skin Other: warm, dry General skin exam: no rashes or lesions noted Neuro General: patient oriented x3 Cranial nerves: Yes Normal hearing present Cognition (Neuro): normal cognition Gait exam (Neuro): Normal gait present Extrem General: Yes normal to inspection, Yes capillary refill normal, Yes no clubbing, cyanosis or edema and Yes no pedal edema Psych Appearance: grossly normal and well kempt Speech and movement: Normal speech and movement present and Clear speech present Affect: normal affect Attitude: cooperative Thought process: Normal thought process present Thought content: Normal thought content present Insight: Good insight present (Psych) Judgement: Good judgement present (Psych) Assessment & Plan Assessment & Plan (1) Asthma: Code(s): J45.909 - Unspecified asthma, uncomplicated Category: Medical (2) Environmental allergies: Code(s): Z91.09 - Other allergy status, other than to drugs and biological substances Category: Medical Plan Pepe reports worsening asthma control however not using respiratory therapies consistently. Encouraged compliance with Symbicort and use albuterol MDI PRN. Consider antihistamine or Flonase PRN as likely allergic component contributing to symptoms. He is aware to call if symptoms do not improve. All questions were answered and patient is in agreement of plan. Will follow up in 3 months or sooner if needed. Medications: New albuterol sulfate 90 mcg/actuation 2 puffs inhalation Q4-6H PRN 3 ea 0RF shortness of breath or wheezing Coding Level of Care Code Est Pt Level 4 (66889) Diagnoses Asthma J45.909 Environmental allergies Z91.09
[2025-03-02 15:12] VITALS: BP 132/88; PULSE 72; O2SAT 96; BMI 25.2
--- OUTSIDE RECORDS SUMMARY | 2025-03-02 15:42 | XMS_ITS | Clinical Summary ---
Author Organization [facility] [address] Address [address] [place] [address] Phone Care Team Providers Care Log Skidder Name Role Phone Bismark Weiss Primary Care Provider [phone] Allergies No known active allergies Medications amLODIPine (NORVASC) 10 mg tablet Take 1 tablet (10 mg total) by mouth 1 (one) time each day. 4 Active atorvastatin (LIPITOR) 10 mg tablet Take 1 tablet (10 mg total) by mouth 1 (one) time each day. 4 Active Auvelity 45-105 mg tablet, IR and ER, biphasic Take 1 tablet by mouth 2 (two) times a day. 5 Active hydrOXYzine HCL (ATARAX) 25 mg tablet Take 1 tablet (25 mg total) by mouth 3 (three) times a day if needed. 4 Active Breo Ellipta 100-25 mcg/dose inhaler Inhale 1 puff by mouth 1 (one) time each day. 4 Active fluticasone propionate (FLONASE) 50 mcg/actuation nasal spray Administer 2 sprays into each nostril 1 (one) time each day. 4 Active coenzyme Q-10 30 mg capsule Take 2 capsules (60 mg total) by mouth 1 (one) time each day. Active magnesium, amino acid chelate, 133 mg tablet Take 1 tablet (133 mg total) by mouth 2 (two) times a day. Active Surgical History Surgery Date Site/Laterality Comments MOUTH [...] Assigned at Male 08/13/2024 8:48 AM EST Legal Sex Male 10:50 AM EST Gender Identity Male 08/13/2024 8:48 AM EST Sexual Orientation Straight 08/13/2024 8: 48 AM EST Obstetrics History Last Filed Vital Signs Vital Sign Reading Time Taken Comments Blood Pressure 145/89 08/25/2024 10:50 AM EST Pulse 63 08/25/2024 10:50 AM EST Temperature 36.7 C (98 F) 08/25/2024 10:30 AM EST Respiratory Rate 11 [...] of 3 - 19+ 3-dose series) 1984 Pneumococcal Vaccine: 50+ Years (1 of 1 - PCV) 10/03/2015 Zoster Vaccines (1 of 2) 10/03/2015 COVID-19 Vaccine (2023-2 5 season) 2024 08/01/2021, 11/23/2020, 11/02/2020 Cholesterol Screening (Lipid Panel) 07/14/2024 HIV Screening 07/14/2024 Hepatitis C Screening 07/14/2024 Social Influencers of Health Screening 07/14/2024 Depression Screening 07/29/2024 Influenza Vaccine (#1) 2025 07/16/2024 Colorectal Cancer Screening: Colonoscopy 08/25/2034 08/25/2024 RSV Immunization Adult Patients (1 - 1-dose 75+ series) 2040 HIB Vaccines Aged Out No longer eligi [...] patient's age to complete this topic Meningococcal B Vaccine Aged Out No l onger eligible based on patient's age to complete [...] of colonic polyps from Last 3 Months or Most Recently Relevant to Health Maintenance Results * COLONOSCOPY Anesthesia - MAC; [facility] ENDOSCOPY (08/25/2024 10:29 AM EST) Anatomical Region Laterality Modality Endoscopy 08/25/2024 10:0 9 AM EST Impressions 08/25/2024 10:31 AM EST - Diverticulosis in the sigmoid colon. - The examination was otherwise normal on direct and retroflexion views. - No specimens collected. Recommendation: - Repeat colonoscopy in 5 years for screening purposes. Narrative 08/25/2024 10:31 AM EST [facility] GI Patient Name: Pepe Yao Procedure Date: 08/25/2024 10:09 AM Date of : 1965 Age: 58 Room: ROOM 15 Gender: Male Note Status: Finalized Attending MD: Humble Kessler MD, Procedure Date No Time: 08/25/2024 Procedure: Colonoscopy Indications: Colon cancer screening in patient at increased risk: Family history of 1st-degree relative with colon [...] scope was passed under direct vision. Throughout the procedure, the patient's blood pressure, pulse, and oxygen [...] normal. Multiple diverticula were found in the sigmoid colon. The exam was otherwise without abnormality on direct and retroflexion views. Procedure Code(s): --- Professional --- G0105, Colorectal cancer screening; colonoscopy on individual at high risk Diagnosis Code(s): --- Professional --- K57.30, Diverticulosis of large intestine without perforation or abscess without bleeding Z83.71, Family history of colonic polyps CPT copyright 2020 [employer]. All rights reserved. The codes documented in this report are preliminary and upon manufacturing mechanic review may be revised to meet current compliance requirements. Humble Kessler MD 08/25/2024 10:31:43 AM This report has been signed electronically.Humble Kessler MD Number of Addenda: 0 Note Initiated On: 08/25/2024 10:09 AM Scope In: Scope Out: Endoscopy Department at [facility] - [address] [place] [id number] Procedure Note Humble Kessler MD - 08/25/2024 [facility] GI Patient Name: Pepe Yao Procedure Date: 08/25/2024 10:09 AM Date of : 1965 Age: 58 Room: ROOM 15 Gender: Male Note Status: Finalized Attending MD: Humble Kessler MD, Procedure Date No Time: 08/25/2024 Procedure: Colonoscopy Indications: Colon cancer screening in patient at increasedrisk: Family history of 1st-degree relative with colon [...] history of colonic polyps CPT copyright 2020 [employer]. All rights reserved. The codes documented in this report are preliminary and upon manufacturing mechanic reviewmay be revised to meet current compliance requirements. Humble Kessler MD 08/25/2024 10:31:43 AM This report has been signed electronically.Humble Kessler MD Number of Addenda: 0 Note Initiated On: 08/25/2024 10:09 AM Scope In: Scope Out: Endoscopy Department at [facility] - [address] [place] [id number] IMPRESSION: - Diverticulosis in the sigmoid colon. - The examination was otherwise normal on directand retroflexion views. - No specimens collected. Recommendation: - Repeat colonoscopy in 5 years for screeningpurposes. Humble Kessler MD GI~PROCEDURE ORDERABLES Fin al Result from Last 3 Months or Most Recently Relevant to Health Maintenance Insurance [employer] Care Teams Log Skidder Relationship Specialty Start Date End Date Bismark Weiss PA PCP - General Physician Court Administrator 07/14/24
== END 2025-03-02 15:43 | disposition home or self-care (01) ==
LOC: HO.HPSW 15:09
PROVIDERS: PCP Physician Assistant Medical; Visit Provider Nurse Practitioner Family
DX: J45.909 Unspecified asthma, uncomplicated (principal); Z91.09 Other allergy status, other than to drugs and biological substances
CPT/HCPCS: 99214

== ENCOUNTER 2025-06-23 13:13 | Outpatient (AMB) | payer OTHER, SELFPAY ==
[2025-06-23 13:15] VITALS: BP 138/80; PULSE 76; O2SAT 95; BMI 24.7
--- NOTE | 2025-06-23 13:15 | MHC.OFFVIS ---
Vital Signs 06/23/25 13:15 Height 5 ft 11 in Weight 177 lb BMI 24.7 BP 138/80 Blood Pressure Location Rt brachial Position Sitting Pulse 76 Pulse Source Pulse Oximeter Pulse Oximetry (%) 95 Oxygen Delivery Method Room Air Intake Visit Reasons: asthma, SOB and persistent cough Allergies No Known Allergies Allergy (Verified 06/23/25 13:17) HPI HPI asthma, SOB and persistent cough: Details: Pepe is a pleasant 59 year old male, never smoker, with underlying asthma, ARSALAN not on CPAP, HTN, HLD and Depression. At baseline patient has been well controlled with the use of Symbicort, rarely requiring albuterol MDI. Today presents for an acute visit. For the last 2 weeks patient reports increase in chest congestion with productive cough, wheezing and dyspnea on exertion. He has been compliant with Symbicort using albuterol MDI multiple times a day with moderate relief. He denies any fevers, chills or sick contacts. [facility] Social History Patient Tobacco Use Status: Never used Tobacco Substance Use Type: Marijuana Review of Systems Const Denies chills, Denies excessive sweating, Denies fever(s), Denies headache(s) and Denies night sweats Eyes Denies dry eyes, Denies irritation and Denies itchy eyes ENT Reports Normal hearing present, Denies headache(s), Denies nasal congestion, Denies post nasal drip and Denies sore throat Card Denies chest pain, Denies chest pain at rest, Denies chest pain with activity, Denies claudication, Denies leg edema, Reports dyspnea on exertion, Denies orthopnea and Denies paroxysmal nocturnal dyspnea Resp Reports change in phlegm color, Reports chest congestion, Reports cough, Denies hemoptysis, Denies excessive phlegm production, Denies pain on inspiration, Denies pain with cough, Reports dyspnea on exertion, Denies stridor and Reports wheezing Musc Denies myalgias Neuro Reports Normal hearing present and Denies headache(s) Endo Denies excessive sweating Benny/Lymph Denies lymphadenopathy Aller/Immun Denies itchy eyes, Denies seasonal rhinorrhea and Reports wheezing Physical Exam Vital Signs: Last Vital Signs Pulse 76 06/23/25 13:15 BP 138/80 06/23/25 13:15 Pulse Ox 95 06/23/25 13:15 Oxygen Delivery Method Room Air 06/23/25 13:15 BMI result Body Mass Index 24.7 Const General: cooperative, healthy appearing, comfortable, no acute distress, well developed and alert Orientation/consciousness: patient oriented x3 Limitations: no limitations HEENT Head: Yes normal to inspection, Yes normocephalic and Yes atraumatic Ears: hearing grossly normal bilaterally and external ears normal Eyes General: appearance normal, both eyes and all related structures Eyelids: Yes eyelids normal Sclerae: sclerae normal EOM: EOMs intact bilaterally Neck Neck: Yes normal visual inspection and Yes no lymphadenopathy Lymphatic: no lymphadenopathy noted Chest Chest palpation & inspection: normal inspection of the chest Resp Other: Improvement in aeration after DuoNeb given an office Effort & Inspection: normal respiratory effort, able to speak in complete sentences, no audible wheezes, no cough, no stridor, not tachypneic, no tripod positioning and no use of accessory muscles Auscultation: rhonchi, wheezes and diminished lung sounds Cardio Jugular venous distension: no JVD Rate: regular rate Rhythm: regular rhythm Skin Other: warm, dry General skin exam: no rashes or lesions noted Neuro General: patient oriented x3 Cranial nerves: Yes Normal hearing present Cognition (Neuro): normal cognition Gait exam (Neuro): Normal gait present Extrem General: Yes normal to inspection, Yes capillary refill normal, Yes no clubbing, cyanosis or edema and Yes no pedal edema Psych Appearance: grossly normal and well kempt Speech and movement: Normal speech and movement present and Clear speech present Affect: normal affect Attitude: cooperative Thought process: Normal thought process present Thought content: Normal thought content present Insight: Good insight present (Psych) Judgement: Good judgement present (Psych) Office Procedures Nebulizer Treatment Nebulizer Treatment [id number] RX initial, or Nebulizer Subsequent Treatment Office Meds ipratropium 0.5 mg-albuterol 3 mg (2.5 mg base)/3 mL nebulization soln Performing Provider: Purnima Presley NP Performing Location: [facility] Administered by: Purnima Presley NP on 06/23/25 13:34 Dose Route Admin Location Dispensed Lot Number Expiration Date [facility] [place] 3 mL inhalation 3 mL [id number] 04/27/26 Assessment & Plan Assessment & Plan (1) Asthma: Code(s): J45.909 - Unspecified asthma, uncomplicated Category: Medical (2) Environmental allergies: Code(s): Z91.09 - Other allergy status, other than to drugs and biological substances Category: Medical Plan Will treat bronchitic symptoms and exacerbation with azithromycin and prednisone. Will also give nebulizer for home use and send DuoNeb solution to pharmacy. He is aware to call if symptoms do not improve, may need to consider increasing Symbicort. Possible allergic contribution, will send for RAST testing. All questions were answered and patient is in agreement of plan. Will follow up in 8-10 weeks or sooner if needed. Orders: Orders Resp Allergy Profile Region I Today Z91.09 - Other allergy status, other than to drugs and biological substances Complete Blood Count Auto Diff Today Z91.09 - Other allergy status, other than to drugs and biological substances Immunoglobulin E Today Z91.09 - Other allergy status, other than to drugs and biological substances AMB Nebulizer Treatment Today J45.909 - Unspecified asthma, uncomplicated Medications: New azithromycin For 250 mg dose pack: take 500 mg today (day 1), then 250 mg for 4 days (days 2-5) PO 6 tabs 0RF prednisone 40 mg (2 x 20 mg) PO DAILY 10 tabs 0RF ipratropium-albuterol 0.5 mg-3 mg(2.5 mg base)/3 mL 3 mL inhalation Q6-8H PRN 90 mL 0RF wheezing J45.909 - Unspecified asthma, uncomplicated Coding Level of Care Code Est Pt Level 4 (80931) Diagnoses Asthma J45.909 Environmental allergies Z91.09 CPT Codes Nebulizer Treatment - Nebulizer Treatment, initial or subsequent: [id number]/[id number] RX initial, or Nebulizer Subsequent Treatment ([id number])
== END 2025-06-23 14:04 | disposition home or self-care (01) ==
LOC: HO.HPSW 13:14
PROVIDERS: PCP Physician Assistant Medical; Visit Provider Nurse Practitioner Family
DX: J45.909 Unspecified asthma, uncomplicated (principal); Z91.09 Other allergy status, other than to drugs and biological substances
CPT/HCPCS: 99214

== ENCOUNTER → 2025-06-23 13:13 | Outpatient (BNVA) | payer OTHER, SELFPAY | PROVIDERS: PCP Physician Assistant Medical; Visit Provider Nurse Practitioner Family | DX: J45.909 Unspecified asthma, uncomplicated (principal); Z91.09 Other allergy status, other than to drugs and biological substances; R06.02 Shortness of breath; R05.9 Cough, unspecified | CPT/HCPCS: 94640 ==